=== PATIENT | female | born 1975 | race Two or more races ===

== ENCOUNTER 2021-07-26 17:49 | Emergency (ER) | payer SELFPAY ==
[~2021-07-26] VITALS: Ht 157.5 cm; Wt 73.9 kg
[2021-07-26] MEDS ORDERED: KETOROLAC TROMETH 60MG/2ML VIAL IM ONE (20:00)
[2021-07-26 20:40] VITALS: BP 135/87
== END 2021-07-26 20:50 | disposition home or self-care (01) ==
LOC: ER 17:49 → EDBD 17:49 → ER 20:50
DX: M62.830 Muscle spasm of back (principal); M54.41 Lumbago with sciatica, right side; R51.9 Headache, unspecified; M54.16 Radiculopathy, lumbar region; V43.52XA Car driver injured in collision with other type car in traffic accident, initial encounter; Y93.89 Activity, other specified; Y92.89 Other specified places as the place of occurrence of the external cause; Y99.8 Other external cause status
CPT/HCPCS: 70450; 72131; 96372; 99284; J1885